=== PATIENT | male | born 1995 | race Caucasian/White ===

== ENCOUNTER 2021-01-26 23:52 | Emergency (ER) | payer OTHER, SELFPAY ==
[2021-01-26 23:55] VITALS: BP 137/84; PULSE 86; RESP 17; TEMP 36.7; O2SAT 98; BMI 24.2
--- NOTE | 2021-01-27 00:04 | ED.GENADULT ---
HPI - General Adult General Chief complaint: Abdominal Pain Stated complaint: Difficulty swallowing Time Seen by Provider: 01/26/21 23:58 Source: patient and EMS Mode of arrival: EMS Limitations: no limitations History of Present Illness HPI narrative: This is a 26-year-old male with Klinefelter's who takes testosterone daily who was eating beef [place] about a 1/2 hour prior to arrival. He states that he felt chunk get stuck in his chest. He has been unable to drink any fluids. He has not been able to swallow his saliva it keeps having to spit it back up. He denies any fevers. He denies any abdominal pain. He states that it feels like moved upwards a little bit towards his throat. He had 1 prior event that was likely a choking event as a child where he states he required the Heimlich maneuver. States that he does not really have a gag reflex. Patient denies any other medical issues. No prior surgeries. Related Data Allergies Allergy/AdvReac Type Severity Reaction Status Date / Time No Known Drug Allergies Allergy Verified 01/27/21 00:52 Review of Systems Review of Systems ROS Unobtainable: All systems reviewed & are unremarkable except as noted in HPI and below Patient History Medical History (Updated 01/27/21 @ 00:12 by Gina Xavier DO) Klinefelters syndrome Exam Initial Vital Signs Initial Vital Signs: Vital Signs Temperature 98.1 F 01/26/21 23:55 Pulse Rate 86 01/26/21 23:55 Respiratory Rate 17 01/26/21 23:55 Blood Pressure 137/84 01/26/21 23:55 Pulse Oximetry 98 01/26/21 23:55 GEN: well nourished, well appearing male, alert and oriented x 3, patient appears to be in mild distress. HEENT: Atraumatic, pupils are equal round reactive to light, extraocular movements are intact, nares are clear,Throat is clear without any exudates, erythema, tonsillar enlargement or uvular deviation. HEART: Regular rate and rhythm without murmur, clicks, rubs. LUNGS:Lungs clear to auscultation, no wheezes, rales, crackles, chest moves symmetrically ABD:bowel sounds normal, soft, non-tender, no guarding, rebound, rigidity, no masses noted, no hepatosplenomegaly. Patient is spinning clear saliva into a bag. :No CVA tenderness MSCL: Non-tender, no muscle atrophy, muscles strength 5/5 upper and lower extremities, full range of motion, normal gait NEURO:CN 2-12 intact, sensation normal SKIN: Rash, erythema or skin changes appreciated. Course Orders Ordered: Discontinued Medications Glucagon (Glucagon,Human Recombinant 1 Mg/Ml Vial) 1 mg IV NOW ONE Stop: 01/27/21 00:04 Last Admin: 01/27/21 00:22 Dose: 1 mg Documented by: KI Ondansetron HCl (Ondansetron 4 Mg/2 Ml Inj) 4 mg IV NOW ONE Stop: 01/27/21 00:04 Last Admin: 01/27/21 00:22 Dose: 4 mg Documented by: KI Reevaluation(s) Reevaluation #1: Patient had significant prove min after glucagon and is able to drink liquids without issue. Patient states that he often feels like food gets stuck similar to this but will typically drink water to force the food bolus into the stomach. Discussed if these are recurrent he probably would benefit from EGD evaluation and referral was given. Time: 00:39 Vital Signs Vital signs: Vital Signs - 8 hr 01/26/21 23:55 01/27/21 00:51 Temperature 98.1 F Pulse Rate 86 70 Respiratory Rate 17 18 Blood Pressure 137/84 137/91 H Pulse Oximetry 98 95 Discharge Plan Departure Patient Disposition: Home Clinical Impression: Food impaction of esophagus Instructions: Steakhouse Syndrome Activity Restrictions/Additional Instructions: Follow up if you have any recurrent symptoms with your primary care. Recommend follow-up with General surgery or Gastroenterology for an EGD to evaluate for any esophageal strictures. Make sure to chew your food adequately and take your time while eating. Return if you have recurrent symptoms, if you are unable to swallow, if you have fevers, persistent vomiting, unable to swallow year old with saliva or secretions new chest pain, shortness of breath or other new or concerning symptoms. Referrals: Wanda Yusuf MD [Physician] -
[2021-01-27] MEDS: GLUCAGON,HUMAN RECOMBINANT 1 MG/ML VIAL IV (00:22)
[2021-01-27] MEDS: ONDANSETRON 4 MG/2 ML INJ IV (00:22)
[2021-01-27 00:51] VITALS: BP 137/91; PULSE 70; RESP 18; O2SAT 95
== END 2021-01-27 00:51 | disposition home or self-care (01) ==
LOC: ED 01-27 00:52
PROVIDERS: Emergency Provider Emergency Medicine
DX: T18.128A Food in esophagus causing other injury, initial encounter (principal)
CPT/HCPCS: 36415; 96374; 96375; 99281; 99284; J1610; J2405